=== PATIENT | female | born 1985 | race Caucasian/White ===

== ENCOUNTER 2019-01-05 21:31 | Inpatient (IN) | payer MEDICAID ==
[~2019-01-05] VITALS: Ht 149.9 cm; Wt 67.2 kg
[2019-01-05 22:22] VITALS: BP 121/78; PULSE 55; RESP 18
[2019-01-05 22:28] VITALS: Ht 149.9 cm; Wt 67.2 kg
[2019-01-05 22:29] VITALS: BP 143/76; PULSE 60; RESP 18
[2019-01-06] MEDS ORDERED: CARBOPROST 250 MCG INJ IM PRN (01:00)
[2019-01-06] MEDS ORDERED: OXYTOCIN 30 UNITS/LR 500 ML IV PRN (01:00)
[2019-01-06] MEDS ORDERED: MISOPROSTOL 200 MCG TAB PR PRN ×2 (01:00→15:30)
[2019-01-06] MEDS ORDERED: METHYLERGONOVINE 0.2 MG INJ IM PRN (01:00)
[2019-01-06] MEDS ORDERED: CEFAZOLIN 2 GM/50 ML (PMX) 50 ML IVPB SCH (01:00)
[2019-01-06] MEDS: LACTATED RINGER'S 1,000 ML IV SCH ×4 (01:31→23:19)
[2019-01-06] MEDS ORDERED: OXYTOCIN 30 UNITS/LR 500 ML IV SCH (06:00)
[2019-01-06] MEDS ORDERED: CITRIC ACID/NA CITRATE 30 ML CUP PO ONE (11:30)
[2019-01-06] MEDS ORDERED: morphine SULFATE/PF (10 MG/10 ML) INJ ONE (14:20)
[2019-01-06] MEDS ORDERED: METOCLOPRAMIDE 10 MG INJ ONE (14:20)
[2019-01-06] MEDS ORDERED: KETOROLAC 30 MG INJ ONE (14:21)
[2019-01-06] MEDS ORDERED: LACTATED RINGER'S 1,000 ML IV SCH (15:25)
[2019-01-06] MEDS ORDERED: morphine 2 MG INJ IV PRN ×6 (15:30)
[2019-01-06] MEDS ORDERED: NA PHOSPHATE/BIPHOS 133 ML ENEMA PR PRN (15:30)
[2019-01-06] MEDS ORDERED: ONDANSETRON 4 MG INJ IV PRN ×2 (15:30)
[2019-01-06] MEDS ORDERED: LANOLIN HPA 1 PKT TOP PRN (15:30)
[2019-01-06] MEDS ORDERED: KETOROLAC 30 MG INJ IV PRN (15:30)
[2019-01-06] MEDS ORDERED: NALOXONE (0.4 MG/ML) INJ IV PRN (15:30)
[2019-01-06] MEDS ORDERED: DIPHENHYDRAMINE 50 MG INJ IV PRN ×2 (15:30)
[2019-01-06] MEDS: OXYTOCIN 30 UNITS/LR 500 ML IV SCH ×2 (17:00→18:33)
[2019-01-06 18:30] VITALS: BP 163/79; PULSE 63; RESP 16
[2019-01-06 19:45] VITALS: BP 133/80; PULSE 82; RESP 18
[2019-01-06] MEDS: SENNA/DOCUSATE NA (8.6MG/50MG) TAB PO SCH (21:38)
[2019-01-06] MEDS ORDERED: OXYTOCIN 30 UNITS/LR 500 ML IV ONE (21:52)
[2019-01-06 23:00] VITALS: BP 137/76; PULSE 66; RESP 18
[2019-01-06] MEDS: KETOROLAC 30 MG INJ IV PRN (23:24)
[2019-01-07] VITALS (8 sets, daily range): BP systolic 100–144; BP diastolic 57–78; PULSE 68–82; RESP 16–19
[2019-01-07] MEDS: KETOROLAC 30 MG INJ IV PRN ×2 (05:30→10:48)
[2019-01-07] MEDS: SENNA/DOCUSATE NA (8.6MG/50MG) TAB PO SCH ×2 (10:07→23:27)
[2019-01-07] MEDS: LACTATED RINGER'S 1,000 ML IV SCH ×2 (11:12→16:40)
[2019-01-07] MEDS ORDERED: OXYCODONE/ACETAMINOPHEN (5/325) TAB PO PRN (15:30)
[2019-01-07] MEDS: IBUPROFEN 600 MG TAB PO SCH ×2 (17:21→23:27)
[2019-01-07] MEDS: OXYCODONE/ACETAMINOPHEN (5/325) TAB PO PRN (17:27)
[2019-01-08] MEDS: OXYCODONE/ACETAMINOPHEN (5/325) TAB PO PRN ×2 (04:06→15:21)
[2019-01-08 04:15] VITALS: BP 128/80; PULSE 77; RESP 18
[2019-01-08] MEDS: IBUPROFEN 600 MG TAB PO SCH ×4 (06:02→23:44)
[2019-01-08 08:00] VITALS: BP 125/90; PULSE 74; RESP 18
[2019-01-08] MEDS: SENNA/DOCUSATE NA (8.6MG/50MG) TAB PO SCH ×2 (08:25→20:57)
[2019-01-08 16:05] VITALS: BP 139/71; PULSE 66; RESP 16
[2019-01-08 20:15] VITALS: BP 117/71; PULSE 67; RESP 18
[2019-01-09 05:34] VITALS: BP 146/87; PULSE 69; RESP 18
[2019-01-09] MEDS: IBUPROFEN 600 MG TAB PO SCH ×2 (05:34→11:31)
[2019-01-09] MEDS ORDERED: DIPHTH/TET/ACEL PERTUSS (ADULT) 0.5 ML VIAL IM* ONE (09:00)
[2019-01-09] MEDS ORDERED: MEASLES,MUMPS,RUBELLA VACCINE INJ SC* ONE (09:00)
[2019-01-09 09:07] VITALS: BP 109/70; PULSE 68; RESP 20
[2019-01-09] MEDS: SENNA/DOCUSATE NA (8.6MG/50MG) TAB PO SCH (09:07)
[2019-01-09] MEDS: OXYCODONE/ACETAMINOPHEN (5/325) TAB PO PRN ×2 (09:07→13:41)
== END 2019-01-09 15:00 | disposition home or self-care (01) | DRG 788 ==
LOC: OBT 21:31 → L-D 21:33 → OBT 01-06 00:25 → L-D 01-06 00:25 → PP1 01-06 18:30
PROVIDERS: ADMIT Specialist; ATTEND Specialist
PROC: 10907ZC Drainage of Amniotic Fluid, Therapeutic from Products of Conception, Via Natural or Artificial Opening (ICD-10-PCS; 2019-01-06)
PROC: 10D00Z1 Extraction of Products of Conception, Low, Open Approach (ICD-10-PCS; principal; 2019-01-06 13:45)
DX: O24.429 Gestational diabetes mellitus in childbirth, unspecified control (principal); Z3A.38 38 weeks gestation of pregnancy; Z37.0 Single live birth
CPT/HCPCS: 76818; 80053; 81001; 82962; 84112; 84560; 85025; 85384; 85610; 85730; 86592; 86850; 86900; 86901; G0463; J0690; J1885; J2210; J2270; J2274; J2405; J2590; J2765; J7120